=== PATIENT | male | born 1950 | race African-American/Black ===

== ENCOUNTER → 2016-05-24 | Outpatient (CLI) | payer BC, MEDICARE | LOC: RAD 13:15 | PROVIDERS: ATTEND Internal Medicine | DX: Z12.2 Encounter for screening for malignant neoplasm of respiratory organs (principal); F17.210 Nicotine dependence, cigarettes, uncomplicated | CPT/HCPCS: G0297 ==

== ENCOUNTER 2016-08-17 20:31 | Emergency (ER) | payer MEDICARE ==
[2016-08-17] MEDS ORDERED: DIPHENHYDRAMINE HCL 50 MG/ML VIAL IV ONE (23:34)
[2016-08-17] MEDS ORDERED: NORMAL SALINE 1000 ML 500 ML IV ONE (23:34)
[2016-08-17] MEDS ORDERED: METOCLOPRAMIDE HCL INJ/PF 10 MG/2 ML SDV IV ONE (23:34)
--- NOTE | 2016-08-17 23:38 | ER Document Report ---
ED General - General Chief Complaint: Headache <24 hrs old Stated Complaint: HEADACHE Time Seen by Provider: 08/17/16 23:27 Notes: Patient is a 65-year-old male presents with complaint of headache and some dizziness. Patient says he has had a headache for years. He says he always has a headache but it waxes and wanes. She is a neurologist, Dr. Castellon, for his headaches. He says over the last few days he has had some gradual worsening dizziness. He says he feels lightheaded when he stands up. He says when he lays down or sits down he is not dizzy. He saw Dr. Moser yesterday was started on topiramate. He says this is not been helping. No recent fevers infections. No new trauma. Headache is not the worst headache he has ever had. He says only difference is the dizziness that he has today. He does not feel as if he is having spinning sensation. He has no focal weakness or numbness. No other complaints at this time. TRAVEL OUTSIDE OF THE [place] IN LAST 30 DAYS: No - Related Data Allergies/Adverse Reactions: No Known Allergies Allergy (Verified 02/21/13 11:20) Past Medical History - Social History Smoking Status: Unknown if Ever Smoked Frequency of alcohol use: None Drug Abuse: None Family History: Reviewed & Not Pertinent Patient has suicidal ideation: No Patient has homicidal ideation: No - Past Medical History Cardiac Medical History: Reports: Hx Hypercholesterolemia, Hx Hypertension Neurological Medical History: Reports: Hx Migraine Renal/ Medical History: Denies: Hx Peritoneal Dialysis GI Medical History: Reports: Hx Hiatal Hernia - Immunizations Hx Diphtheria, Pertussis, Tetanus Vaccination: Yes Hx Pneumococcal Vaccination: 09/24/11 Review of Systems - Review of Systems Notes: My Normal Review Basic REVIEW OF SYSTEMS: CONSTITUTIONAL : Denies fever, chills, or sweats. Denies recent illness. EENT: Denies eye, ear, throat, or mouth pain or symptoms. Denies nasal or sinus congestion. CARDIOVASCULAR: Denies chest pain. RESPIRATORY: Denies cough, cold, or chest congestion. Denies shortness of breath, difficulty breathing, or wheezing. GASTROINTESTINAL: Denies abdominal pain. Denies nausea, vomiting, or diarrhea. Denies constipation. MUSCULOSKELETAL: Denies neck or back pain or joint pain or swelling. SKIN: Denies rash or skin lesions. NEUROLOGICAL: Denies altered mental status or loss of consciousness. Has a headache. Denies weakness or paralysis or loss of use of either side. Denies problems speech. Denies sensory or motor loss. ALL OTHER SYSTEMS REVIEWED AND NEGATIVE. Physical Exam - Vital signs Vitals: Temp Pulse Resp BP Pulse Ox 98.1 F 66 18 152/80 H 97 08/17/16 21:17 08/17/16 21:17 08/17/16 21:08/17/16 21:17 08/17/16 21:17 - Notes Notes: General Appearance: Well nourished, alert, cooperative, no acute distress, mild obvious discomfort. Vitals: reviewed, See vital signs table. Head: no swelling or tenderness to the head Eyes: PERRL, EOMI, Conjuctiva clear Mouth: No decreasd moisture Neck: Supple, no neck tenderness Lungs: No wheezing, No rales, No rhonci, No accessory muscle use, good air exchange bilaterally. Heart: Normal rate, Regular rythm, No murmur, no rub Abdomen: Normal BS, soft, No rigidity, No abdominal tenderness, No guarding, no rebound, no abdominal masses, no organomegaly Extremities: strength 5/5 in all extremities, good pulses in all extremities, no swelling or tenderness in the extremities, no edema. Skin: warm, dry, appropriate color, no rash Neuro: speech clear, oriented x 3, normal affect, responds appropriately to questions. Nerves II through XII are intact. Distal sensation intact. Patient moves all extremities without difficulty. No focal neurologic deficits on exam. When patient first stands up he does have to balance himself and weights before walking because he says he feels. Patient walks his gait is guarded. He says this is because of him being dizzy. Course - Vital Signs Vital signs: Temp Pulse Resp BP Pulse Ox 98.1 F 66 18 152/80 H 97 08/17/16 21:17 08/17/16 21:17 08/17/16 21:17 08/17/16 21:17 08/17/16 21:17 - Laboratory Result Diagrams: 08/17/16 23:55 08/17/16 23:55 Laboratory results interpreted by me: 08/17/16 08/17/16 23:55 23:55 RDW 14.9 H Sodium 146.0 H Chloride 111 H Glucose 117 H - Transfer of Care Notes: 08/18/16 02:51 After the Benadryl regularly patient's headache is now gone. His dizziness is also gone out that his headache is gone. He looks well. His CT scan is negative. I did obtain a CT scan of head after looking through his previous records and saw visits to his primary care doctor for potential neoplasm. Patient denied history of cancer yet he will also was not the best historian nephroma to make sure there is no malignancy or bleeding malignancy in his head. CT scan was negative. Patient is neurologically intact and feels safe to be discharged home. Is encouraged to return to the ER if he has worsening current headaches, fevers, vomiting, or feels unwell. Patient agrees with plan and will be discharged home. Dictation of this chart was performed using voice recognition software; therefore, there may be some unintended grammatical errors. Discharge - Discharge Clinical Impression: Dizziness Headache Qualifiers: Headache type: unspecified Headache chronicity pattern: acute headache Intractability: not intractable Qualified Code(s): R51 - Headache Condition: Good Disposition: HOME, SELF-CARE Additional Instructions: HEADACHE: The physician does not feel that the headache you are experiencing has a serious underlying cause. Most headaches are due to emotional stress, with resultant muscle tension (tension headache). Occasionally, headaches are secondary to changes in the blood vessels of the scalp (vascular headache and migraine headache). Sometimes, a headache is the first symptom of another developing illness, such as a viral infection. You have no evidence of stroke, bleeding, meningitis, or other serious cause of your headache. The treatment of headaches varies with the severity and cause of the pain. Not all headaches need pain shots. In fact, there is evidence that using narcotics for headaches may make them worse in the long run. The physician will determine the therapy that's in your best interest. If you develop a fever, if the headache is different from any you've previously experienced, or if the headache progressively worsens, then call your physician at once or go to the emergency room. REGLAN (METOCLOPRAMIDE): Reglan has been prescribed. This medicine affects the stomach and intestines. It can be used to treat nausea and vomiting, to prevent reflux of stomach acid up into the esophagus, or to increase the contractions of the stomach and intestines. It is often prescribed for esophagitis, and for paralysis of the stomach in diabetics. Reglan can cause either mild restlessness or drowsiness. You should contact the doctor at once if you become extremely restless, anxious, or cannot sleep, or if you develop uncontrollable motions of the lips, tongue, or jaw. Do not take alcohol with this medicine. Do not drive or operate machinery until you have been taking this medicine long enough to know how it affects you. Call the doctor if you develop abdominal pains, lightheadedness, black stool, or blood in the stool or vomitus. USE OF DIPHENHYDRAMINE: Diphenhydramine (Benadryl) is an antihistamine and has been recommended to help treat your headache and to prevent side effects of other medications used to treat headaches. The medication can be repeated four times daily. Age Elixir (12.5 mg/tsp) 25 mg pill adult 1-2 tabs Antihistamines may cause drowsiness, especially with the first dose. Do not operate machinery or drive while under the effects of the medication. Do not combine the medication with alcohol, or with any other medication without talking to your doctor. FOLLOW-UP CARE: If you have been referred to a physician for follow-up care, call the physician s office for an appointment as you were instructed or within the next two days. If you experience worsening or a significant change in your symptoms, notify the physician immediately or return to the Emergency Department at any time for re-evaluation. Please return to the ER immediately if you have intractable vomiting, fevers, worsening headaches, or feel unwell. Prescriptions: Metoclopramide HCl [Reglan 10 mg Tablet] 1 tab PO ASDIR PRN #25 tablet PRN Reason: Referrals: NORMA MOSER MD [Primary Care Provider] - Follow up in 3-5 days
[2016-08-18 00:06] LABS: ABSOLUTE BASOPHILS # (AUTO) 0.1 10^3/uL (0.0-0.2); ABSOLUTE EOSINOPHILS # (AUTO) 0.1 10^3/uL (0.0-0.6); ABSOLUTE LYMPHOCYTES (AUTO) 3.4 10^3/uL (0.5-4.7); ABSOLUTE MONOCYTES (AUTO) 0.6 10^3/uL (0.1-1.4); ABSOLUTE NEUT (AUTO) 4.9 10^3/uL (1.7-8.2); BASOPHILS % (AUTO) 0.7 % (0-2); EOSINOPHILS % (AUTO) 1.5 % (0-6); HEMATOCRIT 44.9 % (37.9-51.0); HEMOGLOBIN 14.7 g/dL (13.5-17.0); HGB HCT DIFFERENCE -0.8; LYMPHOCYTES % (AUTO) 37.4 % (13-45); MEAN CORPUSCULAR HEMOGLOBIN 29.6 pg (27.0-33.4); MEAN CORPUSCULAR HGB CONC 32.8 g/dL (32.0-36.0); MEAN CORPUSCULAR VOLUME 90 fl (80-97); MONOCYTES % (AUTO) 6.3 % (3-13); RED BLOOD COUNT 4.98 10^6/uL (4.35-5.55); RED CELL DISTRIBUTION WIDTH 14.9 % (11.5-14.0); SEGMENTED NEUTROPHILS % (AUTO) 54.1 % (42-78); WHITE BLOOD COUNT 9.1 10^3/uL (4.0-10.5)
--- NOTE | 2016-08-18 00:07 | RADIOLOGY REPORT (SQ) ---
EXAM DESCRIPTION: CT HEAD WITHOUT COMPLETED DATE/TIME: 08/17/2016 11:45 pm REASON FOR STUDY: headache, dizzy COMPARISON: None. TECHNIQUE: Axial images acquired through the brain without intravenous contrast. Images reviewed wi th bone, brain and subdural windows. Images stored on PACS. All CT scanners at this facility use dose modulation, iterative reconstruction, and/or weight based d osing when appropriate to reduce radiation dose to as low as reasonably achievable (ALARA). [facility]: Dose Right [facility]: CareDose [facility]: Dose Right [facility]: Teradose 4D [facility]: [employer] RADIATION DOSE: 64.61 mGy. LIMITATIONS: None. FINDINGS: VENTRICLES: Normal size and contour. CEREBRUM: No masses. No hemorrhage. No midline shift. Normal akins/white matter differentiation. N o evidence for acute infarction. CEREBELLUM: No masses. No hemorrhage. No alteration of density. No evidence for acute infarction. EXTRAAXIAL SPACES: No fluid collections. No masses. ORBITS AND GLOBE: No intra- or extraconal masses. Normal contour of globe without masses. CALVARIUM: No fracture. PARANASAL SINUSES: Moderate left maxillary mucosal thickening. SOFT TISSUES: No mass or hematoma. OTHER: No other significant finding. IMPRESSION: Chronic left maxillary sinusitis. Otherwise unremarkable CT of the head. TECHNICAL DOCUMENTATION: JOB ID: [id number] Quality ID # [id number]: Final reports with documentation of one or more dose reduction techniques (e.g., Au tomated exposure control, adjustment of the mA and/or kV according to patient size, use of iterative reconstruction technique) 2010 [employer]- All Rights Reserved
[2016-08-18 00:22] LABS: ANION GAP 13 (5-19); BLOOD UREA NITROGEN 10 mg/dL (7-20); CALCIUM 10.1 mg/dL (8.4-10.2); CARBON DIOXIDE 22 mmol/L (22-30); CHLORIDE 111 mmol/L (98-107); CREATININE RESULT 0.74 mg/dL (0.52-1.25); GLUCOSE 117 mg/dL (75-110); POTASSIUM 3.9 mmol/L (3.6-5.0)
[2016-08-18 03:08] VITALS: BP 144/79
== END 2016-08-18 02:55 | disposition home or self-care (01) ==
LOC: ER 20:31
DX: R51 Headache (principal); R42 Dizziness and giddiness; I10 Essential (primary) hypertension; Z86.69 Personal history of other diseases of the nervous system and sense organs
CPT/HCPCS: 99284; 96374; 96375; 36415; 85025; 80048; 70450; J1200; J2765; J7030

== ENCOUNTER → 2017-06-01 | Outpatient (CLI) | payer MEDICARE ==
--- NOTE | 2017-06-01 17:06 | RADIOLOGY REPORT (SQ) ---
EXAM DESCRIPTION: CT LUNG CANCER SCREENING COMPLETED DATE/TIME: 06/01/2017 4:32 pm REASON FOR STUDY: F17.218 NICOTINE DEPENDENCE, CIGARETTES, W OTH DISORDERS F17.218 NICOTINE DEPENDE NCE, CIGARETTES, W OTH DISORDERS Has the patient had a Chest CT scan within the past year? Was the patient offered tobacco cessation counseling? Was the patient engaged in shared decision making for this test? Does the patient have signs or symptoms of Lung Cancer? Is the patient a smoker? How many packs per year? How many years since quitting smoking? Patients age: COMPARISON: 05/24/2016. TECHNIQUE: Low Dose CT scan performed of the chest without intravenous contrast for purposes of scre ening for lung cancer. Images reviewed with lung, soft tissue and bone windows. Reconstructed coron al and sagittal MPR images reviewed. All images stored on PACS. All CT scanners at this facility use dose modulation, iterative reconstruction, and/or weight based d osing when appropriate to reduce radiation dose to as low as reasonably achievable (ALARA). [facility]: Dose Right [facility]: CareDose [facility]: Dose Right [facility]: Teradose 4D [facility]: [employer] RADIATION DOSE: CT Rad equipment meets quality standard of care and radiation dose reduction techniq ues were employed. CTDIvol: 2.1 mGy. DLP: 95 mGy-cm. mGy. . LIMITATIONS: None FINDINGS: LUNGS AND PLEURA: No masses or nodules. Small calcified granulomas in the left base. N o pleural effusions or calcifications. No pneumothorax. Stable mild scattered scarring. HILAR AND MEDIASTINAL STRUCTURES: No identified masses. No abnormal nodes. HEART AND VASCULAR STRUCTURES: No aortic aneurysm. No pericardial effusion. No cardiac devices. CORONARY ARTERY CALCIFICATIONS: No significant calcifications. UPPER ABDOMEN, THYROID, BONES, OTHER SOFT TISSUES: No significant findings. IMPRESSION: NO SIGNIFICANT FINDING IN THE LUNGS ON NON-CONTRASTED CHEST CT. NO OTHER CLINICALLY SIGNIFICANT/POTENTIALLY CLINICALLY SIGNIFICANT FINDINGS LUNGRADS: LUNGRADS: 1 NEGATIVE. NO NODULES, OR DEFINITELY BENIGN NODULES MODIFIER: NONE RECOMMENDATION: Continue annual screening with LDCT in 12 months. COMMENT: CRITERIA: No lung nodules. Nodules with specific calcifications: Complete, central, popcorn, concentric rings and fat containin g nodules. TECHNICAL DOCUMENTATION: JOB ID: [id number] Quality ID # [id number]: Final reports with documentation of one or more dose reduction techniques (e.g., Au tomated exposure control, adjustment of the mA and/or kV according to patient size, use of iterative reconstruction technique) 2010 [facility] Radiology Reading location - IP/workstation name: [email or web address]
== END ==
LOC: RAD 16:30
PROVIDERS: ATTEND Internal Medicine
DX: F17.218 Nicotine dependence, cigarettes, with other nicotine-induced disorders (principal)
CPT/HCPCS: G0297

== ENCOUNTER → 2017-06-13 | Outpatient (CLI) | payer MEDICARE ==
--- NOTE | 2017-06-14 09:00 | RADIOLOGY REPORT (SQ) ---
EXAM DESCRIPTION: MRI HEAD WITHOUT COMPLETED DATE/TIME: 06/13/2017 5:23 pm REASON FOR STUDY: MIGRAINES G43.001 MIGRAINE W/O AURA, NOT INTRACTABLE, WITH STATUS MIGR COMPARISON: MRI cervical spine 10/21/2011 MRI brain 08/17/2016 TECHNIQUE: Multiplanar imaging includes non-contrasted T1, T2, FLAIR, and diffusion with ADC map seq uences. Images stored on PACS. LIMITATIONS: None. FINDINGS: ANATOMY: No anomalies. Normal vascular flow voids. Pituitary fossa normal. CSF SPACES: Normal in size and contour. No hemorrhage. CEREBRUM: Sulci and gyri normal in size and contour. Normal white matter signal on FLAIR imaging. No evidence of hemorrhage, mass, or extraaxial fluid collection. POSTERIOR FOSSA: No signal alteration. No hemorrhage. No edema, masses or mass effect. Internal char tory canals, cerebello-pontine angles, mastoids normal. DIFFUSION IMAGING: Negative for acute or sub-acute infarction. ORBITS: No masses. Globes normal. PARANASAL SINUSES: No fluid levels. Mucosa normal. OTHER: No other significant finding. IMPRESSION: NORMAL MRI OF THE BRAIN WITHOUT INTRAVENOUS GADOLINIUM CONTRAST. EVIDENCE OF ACUTE STROKE: No TECHNICAL DOCUMENTATION: JOB ID: [id number] [employer]- All Rights Reserved Reading location - IP/workstation name: [facility]
== END ==
LOC: RAD 16:08
PROVIDERS: ATTEND Specialist
DX: G43.001 Migraine without aura, not intractable, with status migrainosus (principal)
CPT/HCPCS: 70551

== ENCOUNTER 2017-07-30 12:06 | Emergency (ER) | payer OTHER, MEDICARE ==
[2017-07-30] MEDS ORDERED: MECLIZINE HCL 25 MG TABLET PO ONE (13:44)
--- NOTE | 2017-07-30 13:45 | ER Document Report ---
ED Dizziness/Weakness - General Chief Complaint: Dizziness Stated Complaint: DIZZINESS Time Seen by Provider: 07/30/17 12:40 Notes: Patient is a 66-year-old male with a history of complex migraines with associated dizziness who presents emergency department complaining of headache and dizziness. Patient states that he has had issues with headaches for over 10 years has been following with Dr. Castellon for the past 6. Patient states that he has been initiated on gabapentin recently for this. He states that ever since he has been taking the gabapentin, his dizziness is been a little worse. He states today that when he moves his head certain ways that he feels that he is spinning. He states that when he is stationary that he feels fine. He also admits to pain in the back of his neck radiating into the back of his head. He states that this is an intermittent problem on and off. He denies any pain with range of motion. He denies any associated nausea weakness, lightheadedness when ambulating. Patient denies any recent fevers, trauma. Patient states the headache is not any worse than his baseline. He denies any focal weakness, numbness. No other complaints at this time. Has a history of hypertension, hyperlipidemia. TRAVEL OUTSIDE OF THE [place] IN LAST 30 DAYS: No - Related Data Allergies/Adverse Reactions: No Known Allergies Allergy (Verified 02/21/13 11:20) Past Medical History - Social History Smoking Status: Current Every Day Smoker Frequency of alcohol use: None Family History: Reviewed & Not Pertinent Patient has suicidal ideation: No Patient has homicidal ideation: No - Past Medical History Cardiac Medical History: Reports: Hx Hypercholesterolemia, Hx Hypertension Neurological Medical History: Reports: Hx Migraine Renal/ Medical History: Denies: Hx Peritoneal Dialysis GI Medical History: Reports: Hx Hiatal Hernia - Immunizations Hx Diphtheria, Pertussis, Tetanus Vaccination: Yes Hx Pneumococcal Vaccination: 09/24/11 Review of Systems - Review of Systems Constitutional: No symptoms reported Cardiovascular: No symptoms reported Respiratory: No symptoms reported Gastrointestinal: No symptoms reported Musculoskeletal: See HPI Physical Exam - Vital signs Vitals: Temp Pulse Resp BP Pulse Ox 97.8 F 80 20 152/79 H 99 07/30/17 12:16 07/30/17 12:16 07/30/17 12:16 07/30/17 12:16 07/30/17 12:16 - Notes Notes: PHYSICAL EXAM GENERAL: Alert, interacts well. HEAD: Normocephalic, atraumatic. EYES: Pupils equal, round, and reactive to light. Extraocular movements intact. ENT: Oral mucosa moist, tongue midline. NECK: Full range of motion. Supple. Trachea midline. Tenderness along neck muscle. LUNGS: Clear to auscultation bilaterally, no wheezes, rales, or rhonchi. No respiratory distress. HEART: Regular rate and rhythm. No murmurs, gallops, or rubs. ABDOMEN: Soft, nondistended, nontender. No guarding, rebound, or rigidity.. Bowel sounds present in all 4 quadrants. EXTREMITIES: Moves all 4 extremities spontaneously. No edema, radial and dorsalis pedis pulses 2/4 bilaterally. No cyanosis. NEUROLOGICAL: Alert and oriented x4. Face symmetric. Tongue protrudes midline. Extraocular motions intact. Pupils are 2 mm and equally reactive. Normal speech, normal gait. 5 out of 5 strength in both the distal and proximal upper and lower extremities bilaterally. Sensation is grossly intact throughout. Finger to nose testing normal. Pronator drift normal. PSYCH: Normal affect, normal mood. SKIN: Warm, dry, normal turgor. No rashes or lesions noted. Course - Re-evaluation Re-evalutation: Patient is a 66-year-old male who is hemodynamically stable, no acute distress and afebrile. Presentation consistent with his history of migraines. Patient states that he has had resolution of his dizziness after Antivert, Benadryl and Tylenol. Patient states that he still has some tension in his neck but improved with heat packs. Patient does not have any focal neurologic deficits, nuchal rigidity, vital signs are within normal limits no papilledema. Patient is otherwise no acute distress and hemodynamically stable. Low index for suspicion of acute subarachnoid hemorrhage, meningitis or mass. Low suspicion for acute life-threatening etiology with intact neuro exam therefore no additional imaging or laboratory testing is indicated. Will discharge patient home with strict follow-up with PCP - Vital Signs Vital signs: Temp Pulse Resp BP Pulse Ox 97.8 F 80 21 H 145/86 H 98 07/30/17 12:16 07/30/17 12:16 07/30/17 17:12 07/30/17 17:12 07/30/17 17:12 Discharge - Discharge Clinical Impression: Headache Condition: Good Disposition: HOME, SELF-CARE Instructions: Use of Nbtv-Ebu-Dmfvkod Ibuprofen ([facility]), Warm Packs ([facility]) Additional Instructions: [facility] * Address: [address], [place] [address] * [facility] * Address: [address] [facility], [place] [address] * [facility] * Address: [address] [place] [address] * HEADACHE: The physician does not feel that the headache you are experiencing has a serious underlying cause. Most headaches are due to emotional stress, with resultant muscle tension (tension headache). Occasionally, headaches are secondary to changes in the blood vessels of the scalp (vascular headache and migraine headache). Sometimes, a headache is the first symptom of another developing illness, such as a viral infection. You have no evidence of stroke, bleeding, meningitis, or other serious cause of your headache. The treatment of headaches varies with the severity and cause of the pain. Not all headaches need pain shots. In fact, there is evidence that using narcotics for headaches may make them worse in the long run. The physician will determine the therapy that's in your best interest. If you develop a fever, if the headache is different from any you've previously experienced, or if the headache progressively worsens, then call your physician at once or go to the emergency room. USE OF DIPHENHYDRAMINE: Diphenhydramine (Benadryl) is an antihistamine and has been recommended to help treat your headache and to prevent side effects of other medications used to treat headaches. The medication can be repeated four times daily. Age Elixir (12.5 mg/tsp) 25 mg pill adult 1-2 tabs Antihistamines may cause drowsiness, especially with the first dose. Do not operate machinery or drive while under the effects of the medication. Do not combine the medication with alcohol, or with any other medication without talking to your doctor. FOLLOW-UP CARE: If you have been referred to a physician for follow-up care, call the physician s office for an appointment as you were instructed or within the next two days. If you experience worsening or a significant change in your symptoms, notify the physician immediately or return to the Emergency Department at any time for re-evaluation. Referrals: NORMA MOSER MD [Primary Care Provider] - Follow up in 1 week
[2017-07-30] MEDS ORDERED: ACETAMINOPHEN 325 MG TABLET PO ONE (15:25)
[2017-07-30] MEDS ORDERED: DIPHENHYDRAMINE HCL 50 MG CAPSULE PO ONE (15:25)
[2017-07-30 17:14] VITALS: BP 145/86
[2017-07-31] MEDS ORDERED: LACTATED RINGERS 1000 ML IV PRN (05:00)
--- NOTE | 2017-07-31 12:33 | EKG REPORT ---
SEVERITY:- NORMAL ECG - SINUS RHYTHM : Confirmed by: Dez Quiles MD 31-Jul-2017 12:32:27
== END 2017-07-30 17:16 | disposition home or self-care (01) ==
LOC: ER 12:06
DX: G43.909 Migraine, unspecified, not intractable, without status migrainosus (principal); R42 Dizziness and giddiness; F17.200 Nicotine dependence, unspecified, uncomplicated; I10 Essential (primary) hypertension
CPT/HCPCS: 93005; 93010; 99284

== ENCOUNTER 2018-02-02 22:25 | Emergency (ER) | payer OTHER, MEDICARE ==
--- NOTE | 2018-02-02 23:54 | ER Document Report ---
ED General - General Chief Complaint: Abdominal Pain Stated Complaint: STOMACH ACHE/ITCHY Time Seen by Provider: 02/02/18 23:26 Notes: Patient is a 67-year-old -Welsh male who presents with complaint of a mild stomachache and also some itching. Says started after he started taking topiramate for his chronic migraine headaches. He has a history of chronic migraines. He says he always gets a headache. Currently has a mild headache this is nothing worse than his usual. He is actually scheduled to go see a neurologist this month to have Botox injections try to help with his headache. Headache is not sudden in onset. It chronic and gradual in onset recurring. Says the abdominal pain is mild. No associated vomiting. Some nausea. No diarrhea. No fevers. He says he used to drink alcohol regular basis but quit 10 years ago. No history of liver issues. No history of jaundice. TRAVEL OUTSIDE OF THE [place] IN LAST 30 DAYS: No - Related Data Allergies/Adverse Reactions: No Known Allergies Allergy (Verified 02/02/18 22:38) Past Medical History - Social History Smoking Status: Former Smoker Frequency of alcohol use: None Drug Abuse: None Family History: Reviewed & Not Pertinent - Past Medical History Cardiac Medical History: Reports: Hx Hypercholesterolemia, Hx Hypertension Neurological Medical History: Reports: Hx Migraine Renal/ Medical History: Denies: Hx Peritoneal Dialysis GI Medical History: Reports: Hx Hiatal Hernia - Immunizations Hx Diphtheria, Pertussis, Tetanus Vaccination: Yes Hx Pneumococcal Vaccination: 09/24/11 Review of Systems - Review of Systems Notes: My Normal Review Basic REVIEW OF SYSTEMS: CONSTITUTIONAL : Denies fever, chills, or sweats. Denies recent illness. CARDIOVASCULAR: Denies chest pain. RESPIRATORY: Denies cough, cold, or chest congestion. Denies shortness of breath, difficulty breathing, or wheezing. GASTROINTESTINAL: ALT central abdominal pain. Some nausea. No vomiting. MUSCULOSKELETAL: Denies neck or back pain or joint pain or swelling. SKIN: Denies rash or skin lesions. NEUROLOGICAL: Denies altered mental status or loss of consciousness. Chronic headache. Denies weakness or paralysis or loss of use of either side. Denies problems with gait or speech. Denies sensory or motor loss. ALL OTHER SYSTEMS REVIEWED AND NEGATIVE. Physical Exam - Vital signs Vitals: Temp Pulse Resp BP Pulse Ox 97.8 F 67 16 127/67 H 99 02/02/18 23:57 02/02/18 23:57 02/02/18 23:57 02/02/18 23:57 02/02/18 23:57 - Notes Notes: General Appearance: Well nourished, alert, cooperative, no acute distress, no obvious discomfort. Vitals: reviewed, See vital signs table. Head: no swelling or tenderness to the head Eyes: PERRL, EOMI, Conjuctiva clear Lungs: No wheezing, No rales, No rhonci, No accessory muscle use, good air exchange bilaterally. Heart: Normal rate, Regular rythm, No murmur, no rub Abdomen: Normal BS, soft, No rigidity, No reproducible abdominal tenderness to palpation, No guarding, no rebound, no abdominal masses, no organomegaly Extremities: strength 5/5 in all extremities, good pulses in all extremities, no swelling or tenderness in the extremities, no edema. Skin: warm, dry, appropriate color, no rash Neuro: speech clear, oriented x 3, normal affect, responds appropriately to questions. Renal nerves II through XII are intact. Patient moves all extremities without difficulty. Course - Re-evaluation Re-evalutation: 02/03/18 00:51 Patient looks very well on exam. Is not a lot of pain. All his symptoms started when he started taking the topiramate. We will have him stop taking topiramate. She had some itching social abdominal pain I did check his liver enzymes and bilirubin to make sure there is no evidence of hyperbilirubinemia. His liver enzymes are not elevated. His bilirubin is normal. Patient looks very well and I feel safe to be discharged home. I strongly encouraged him return to ER if he has worsening of his symptoms, fevers, vomiting, or feels unwell. I have prescribed Reglan for the patient to take in place of the topiramate to hopefully help with his headaches. I encouraged him follow-up with his doctor on Sunday. Patient agrees with plan. Dictation of this chart was performed using voice recognition software; therefore, there may be some unintended grammatical errors. - Vital Signs Vital signs: Temp Pulse Resp BP Pulse Ox 97.8 F 67 16 127/67 H 99 02/02/18 23:57 02/02/18 23:57 02/02/18 23:57 02/02/18 23:57 02/02/18 23:57 - Laboratory Result Diagrams: 02/02/18 23:59 02/02/18 23:59 Laboratory results interpreted by me: 02/02/18 02/02/18 23:59 23:59 RDW 14.5 H Lymphocytes % 47.6 H Sodium 146.9 H Chloride 114 H Carbon Dioxide 20 L AST 16 L ALT 17 L Discharge - Discharge Clinical Impression: Abdominal pain Qualifiers: Abdominal location: generalized Qualified Code(s): R10.84 - Generalized abdominal pain Condition: Good Disposition: HOME, SELF-CARE Additional Instructions: Please stop taking the Topiramate as this may be causing your symptoms. I have prescribed a medication called Reglan that you can take instead to help with your headaches. Please return to the ER if you have worsening itching, worsening pain, vomiting, fevers, or feel unwell. Please follow up with your doctor on Sunday fro reevaluation. Prescriptions: Metoclopramide HCl [Reglan 10 mg Tablet] 1 tab PO ASDIR PRN #25 tablet PRN Reason: Referrals: NORMA MOSER MD [Primary Care Provider] - 02/04/18
[2018-02-03 00:15] LABS: ABSOLUTE BASOPHILS # (AUTO) 0.1 10^3/uL (0.0-0.2); ABSOLUTE EOSINOPHILS # (AUTO) 0.1 10^3/uL (0.0-0.6); ABSOLUTE LYMPHOCYTES (AUTO) 4.3 10^3/uL (0.5-4.7); ABSOLUTE MONOCYTES (AUTO) 0.6 10^3/uL (0.1-1.4); BASOPHILS % (AUTO) 0.6 % (0-2); EOSINOPHILS % (AUTO) 1.1 % (0-6); HEMATOCRIT 41.4 % (37.9-51.0); HEMOGLOBIN 13.8 g/dL (13.5-17.0); LYMPHOCYTES % (AUTO) 47.6 % (13-45); MEAN CORPUSCULAR HEMOGLOBIN 29.8 pg (27.0-33.4); MEAN CORPUSCULAR HGB CONC 33.4 g/dL (32.0-36.0); MEAN CORPUSCULAR VOLUME 89 fl (80-97); MONOCYTES % (AUTO) 6.9 % (3-13); PLATELET COUNT 171 10^3/uL (150-450); RED BLOOD COUNT 4.63 10^6/uL (4.35-5.55); RED CELL DISTRIBUTION WIDTH 14.5 % (11.5-14.0); SEGMENTED NEUTROPHILS % (AUTO) 43.8 % (42-78); TOTAL CELLS COUNTED % (AUTO) 100 %; WHITE BLOOD COUNT 9.1 10^3/uL (4.0-10.5)
[2018-02-03 00:35] LABS: ALANINE AMINOTRANSFERASE 17 U/L (21-72); ALBUMIN 4.4 g/dL (3.5-5.0); ALKALINE PHOSPHATASE 67 U/L (38-126); ANION GAP 13 (5-19); ASPARTATE AMINO TRANSFERASE 16 U/L (17-59); BILIRUBIN,DIRECT 0.3 mg/dL (0.0-0.4); BILIRUBIN,TOTAL 0.3 mg/dL (0.2-1.3); BLOOD UREA NITROGEN 14 mg/dL (7-20); CALCIUM 9.9 mg/dL (8.4-10.2); CARBON DIOXIDE 20 mmol/L (22-30); CHLORIDE 114 mmol/L (98-107); GLUCOSE 101 mg/dL (75-110); POTASSIUM 4.2 mmol/L (3.6-5.0); SODIUM 146.9 mmol/L (137-145); TOTAL PROTEIN 6.8 g/dL (6.3-8.2)
[2018-02-03 01:18] VITALS: BP 116/58
== END 2018-02-03 01:20 | disposition home or self-care (01) ==
LOC: ER 22:25
DX: R10.84 Generalized abdominal pain (principal); E78.00 Pure hypercholesterolemia, unspecified; I10 Essential (primary) hypertension
CPT/HCPCS: 36415; 80053; 85025; 99284

== ENCOUNTER → 2018-03-07 | Outpatient (CLI) | payer MEDICARE ==
--- NOTE | 2018-03-07 16:06 | RADIOLOGY REPORT (SQ) ---
EXAM DESCRIPTION: CT ABD/PELVIS WITH IV ORAL COMPLETED DATE/TIME: 03/07/2018 3:47 pm REASON FOR STUDY: GENERALIZED ABDOMINAL PAIN R10.84 GENERALIZED ABDOMINAL PAIN COMPARISON: None. TECHNIQUE: CT scan of the abdomen and pelvis performed with intravenous and oral contrast using ha juan maunel scanning technique with dynamic intravenous contrast injection. Images reviewed with lung, soft t issue, and bone windows. Reconstructed coronal and sagittal MPR images reviewed. Delayed images for e valuation of the urinary system also acquired. All images stored on PACS. All CT scanners at this facility use dose modulation, iterative reconstruction, and/or weight based d osing when appropriate to reduce radiation dose to as low as reasonably achievable (ALARA). [facility]: Dose Right [facility]: CareDose [facility]: Dose Right [facility]: Teradose 4D [facility]: [employer] CONTRAST TYPE AND DOSE: contrast/concentration: Isovue 350.00 mg/ml; Total Contrast Delivered: 80.0 ml; Total Saline Delivered: 68.0 ml RENAL FUNCTION: Creatinine 0.8 RADIATION DOSE: CT Rad equipment meets quality standard of care and radiation dose reduction techniq ues were employed. CTDIvol: 4.4 - 5.2 mGy. DLP: 456 mGy-cm. . LIMITATIONS: None. FINDINGS: LOWER CHEST: Nothing acute. LIVER: Normal size. No masses. No dilated ducts. SPLEEN: Normal size. No focal lesions. PANCREAS: No masses. No significant calcifications. No adjacent inflammation or peripancreatic fluid collections. Pancreatic duct not dilated. GALLBLADDER: No identified stones by CT criteria. No inflammatory changes to suggest cholecystitis. ADRENAL GLANDS: No significant masses or asymmetry. RIGHT KIDNEY AND URETER: No solid masses. No significant calcifications. No hydronephrosis or hyd roureter. LEFT KIDNEY AND URETER: No solid masses. No significant calcifications. No hydronephrosis or hydr oureter. AORTA AND VESSELS: No aneurysm. No dissection. Renal arteries, SMA, celiac without stenosis. RETROPERITONEUM: No retroperitoneal adenopathy, hemorrhage or masses. BOWEL AND PERITONEAL CAVITY: No obstruction. No visualized masses. No free fluid. No inflammatory ch anges or thickening of bowel wall. APPENDIX: Normal. PELVIS: Prostatic impression on the urinary bladder. No pelvic adenopathy. ABDOMINAL WALL: No masses. No hernias. BONES: Nothing acute. OTHER: No other significant finding. IMPRESSION: NO ACUTE FINDINGS IN THE ABDOMEN OR PELVIS. TECHNICAL DOCUMENTATION: JOB ID: [id number] Quality ID # [id number]: Final reports with documentation of one or more dose reduction techniques (e.g., Au tomated exposure control, adjustment of the mA and/or kV according to patient size, use of iterative reconstruction technique) 2010 [employer]- All Rights Reserved Reading location - IP/workstation name: [facility]
== END ==
LOC: RAD 12:51
PROVIDERS: ATTEND Internal Medicine
DX: R10.84 Generalized abdominal pain (principal)
CPT/HCPCS: 74177; 82565

== ENCOUNTER 2018-03-20 16:24 | Emergency (ER) | payer MEDICARE, OTHER ==
[2018-03-20] MEDS ORDERED: PROCHLORPERAZINE EDISYLATE INJ 10 MG/2 ML VIAL IM ONE (18:29)
[2018-03-20] MEDS ORDERED: DIPHENHYDRAMINE HCL 50 MG/ML VIAL IM ONE (18:29)
--- NOTE | 2018-03-20 18:32 | ER Document Report ---
ED Medical Screen (RME) - General Chief Complaint: Headache >24 hrs old Stated Complaint: HEADACHE Time Seen by Provider: 03/20/18 18:24 Notes: 67-year-old male with a history of chronic headaches who takes Botox for his migraines presents the emergency department complaining of a headache that is worse than prior headaches and in a different distribution associated with lightheadedness and blurry vision. Is usually global and tonight it is temporal and radiating from the back of his neck, it is worse than other headaches he has ever had, it is associated with lightheadedness and blurry vision. Patient has never had lightheadedness with his headaches before, patient also states that he has had blurry vision before but is never been this blurry. Patient was worried that he might pass out earlier today. Denies chest pain but admits some mild shortness of breath. TRAVEL OUTSIDE OF THE [place] IN LAST 30 DAYS: No - Related Data Allergies/Adverse Reactions: No Known Allergies Allergy (Verified 03/20/18 18:06) Past Medical History - General Information source: Patient - Social History Chew tobacco use (# tins/day): No Frequency of alcohol use: None Drug Abuse: None - Past Medical History Cardiac Medical History: Reports: Hx Hypercholesterolemia, Hx Hypertension Neurological Medical History: Reports: Hx Migraine Renal/ Medical History: Denies: Hx Peritoneal Dialysis GI Medical History: Reports: Hx Hiatal Hernia - Immunizations Hx Diphtheria, Pertussis, Tetanus Vaccination: Yes Review of Systems - Review of Systems Constitutional: See HPI EENT: See HPI Cardiovascular: See HPI Respiratory: See HPI Hematologic/Lymphatic: See HPI Physical Exam - Vital signs Vitals: Temp Pulse Resp BP Pulse Ox 97.8 F 73 18 124/63 97 03/20/18 16:49 03/20/18 16:49 03/20/18 16:49 03/20/18 16:49 03/20/18 16:49 Interpretation: Normal - General General appearance: Appears well, Alert - HEENT Head: Normocephalic, Atraumatic Eyes: Normal Extraocular movements intact: Yes Pupils: PERRL Notes: No lesions on the scalp, temples are nontender to palpation, no facial droop - Neurological Neuro grossly intact: Yes Cognition: Normal Orientation: AAOx4 Manoj Coma Scale Eye Opening: Spontaneous [place] Coma Scale Verbal: Oriented Manoj Coma Scale Motor: Obeys Commands [place] Coma Scale Total: 15 Speech: Normal Motor strength normal: LUE, RUE, LLE, RLE Course - Vital Signs Vital signs: Temp Pulse Resp BP Pulse Ox 97.8 F 73 18 124/63 97 03/20/18 16:49 03/20/18 16:49 03/20/18 16:49 03/20/18 16:49 03/20/18 16:49 Doctor's Discharge - Discharge Referrals: NORMA MOSER MD [Primary Care Provider] - Follow up as needed
--- NOTE | 2018-03-20 19:07 | EKG REPORT ---
SEVERITY:- OTHERWISE NORMAL ECG - SINUS RHYTHM ATRIAL PREMATURE COMPLEX LEFT AXIS DEVIATION : Confirmed by: Robert Quintero 20-Mar-2018 19:07:04
--- NOTE | 2018-03-20 19:14 | RADIOLOGY REPORT (SQ) ---
EXAM DESCRIPTION: CHEST 2 VIEWS COMPLETED DATE/TIME: 03/20/2018 6:44 pm REASON FOR STUDY: shortness of breath and lightheadedness COMPARISON: 10/06/2012 EXAM PARAMETERS: NUMBER OF VIEWS: two views TECHNIQUE: Digital Frontal and Lateral radiographic views of the chest acquired. RADIATION DOSE: NA LIMITATIONS: none FINDINGS: LUNGS AND PLEURA: No opacities, masses or pneumothorax. No pleural effusion. MEDIASTINUM AND HILAR STRUCTURES: No masses or contour abnormalities. HEART AND VASCULAR STRUCTURES: Heart normal size. No evidence for failure. BONES: No acute findings. HARDWARE: None in the chest. OTHER: No other significant finding. IMPRESSION: NO ACUTE RADIOGRAPHIC FINDING IN THE CHEST. TECHNICAL DOCUMENTATION: JOB ID: [id number] [email or web address]- All Rights Reserved Reading location - IP/workstation name: [email or web address]
--- NOTE | 2018-03-20 19:20 | RADIOLOGY REPORT (SQ) ---
EXAM DESCRIPTION: CT HEAD WITHOUT COMPLETED DATE/TIME: 03/20/2018 6:56 pm REASON FOR STUDY: worsening headache with blurry vision COMPARISON: MR 06/13/2017 CT 08/17/2016 TECHNIQUE: Axial images acquired through the brain without intravenous contrast. Images reviewed wi th bone, brain and subdural windows. Additional sagittal and coronal reconstructions were generated. Images stored on PACS. All CT scanners at this facility use dose modulation, iterative reconstruction, and/or weight based d osing when appropriate to reduce radiation dose to as low as reasonably achievable (ALARA). [facility]: Dose Right [facility]: CareDose [facility]: Dose Right [facility]: Teradose 4D [facility]: [employer] RADIATION DOSE: CT Rad equipment meets quality standard of care and radiation dose reduction techniq ues were employed. CTDIvol: 53.2 mGy. DLP: 964 mGy-cm. mGy. LIMITATIONS: None. FINDINGS: VENTRICLES: Normal size and contour. CEREBRUM: No masses. No hemorrhage. No midline shift. No evidence for acute infarction. Normal gra y/white matter differentiation. No areas of low density in the white matter. CEREBELLUM: No masses. No hemorrhage. No alteration of density. No evidence for acute infarction. EXTRAAXIAL SPACES: No fluid collections. No masses. ORBITS AND GLOBE: No intra- or extraconal masses. Normal contour of globe without masses. CALVARIUM: No fracture. PARANASAL SINUSES: No fluid or mucosal thickening. SOFT TISSUES: No mass or hematoma. OTHER: No other significant finding. IMPRESSION: NORMAL BRAIN CT WITHOUT CONTRAST. EVIDENCE OF ACUTE STROKE: NO. COMMENT: Quality ID # [id number]: Final reports with documentation of one or more dose reduction techniques (e.g., Automated exposure control, adjustment of the mA and/or kV according to patient size, use of iterative reconstruction technique) TECHNICAL DOCUMENTATION: JOB ID: [id number] [employer]- All Rights Reserved Reading location - IP/workstation name: [email or web address]
[2018-03-20 19:27] LABS: ABSOLUTE EOSINOPHILS # (AUTO) 0.1 10^3/uL (0.0-0.6); ABSOLUTE LYMPHOCYTES (AUTO) 3.5 10^3/uL (0.5-4.7); ABSOLUTE MONOCYTES (AUTO) 0.6 10^3/uL (0.1-1.4); ABSOLUTE NEUT (AUTO) 6.2 10^3/uL (1.7-8.2); BASOPHILS % (AUTO) 0.4 % (0-2); EOSINOPHILS % (AUTO) 0.6 % (0-6); HEMATOCRIT 46.3 % (37.9-51.0); HEMOGLOBIN 15.5 g/dL (13.5-17.0); LYMPHOCYTES % (AUTO) 33.4 % (13-45); MEAN CORPUSCULAR HEMOGLOBIN 30.1 pg (27.0-33.4); MEAN CORPUSCULAR HGB CONC 33.4 g/dL (32.0-36.0); MEAN CORPUSCULAR VOLUME 90 fl (80-97); MONOCYTES % (AUTO) 6.1 % (3-13); PLATELET COUNT 199 10^3/uL (150-450); RED BLOOD COUNT 5.14 10^6/uL (4.35-5.55); RED CELL DISTRIBUTION WIDTH 14.3 % (11.5-14.0); SEGMENTED NEUTROPHILS % (AUTO) 59.5 % (42-78); TOTAL CELLS COUNTED % (AUTO) 100 %; WHITE BLOOD COUNT 10.5 10^3/uL (4.0-10.5)
[2018-03-20 19:46] LABS: ALANINE AMINOTRANSFERASE 19 U/L (21-72); ALBUMIN 5.3 g/dL (3.5-5.0); ALKALINE PHOSPHATASE 62 U/L (38-126); ANION GAP 11 (5-19); ASPARTATE AMINO TRANSFERASE 18 U/L (17-59); BILIRUBIN,DIRECT 0.3 mg/dL (0.0-0.4); BILIRUBIN,TOTAL 0.5 mg/dL (0.2-1.3); BLOOD UREA NITROGEN 10 mg/dL (7-20); CALCIUM 10.4 mg/dL (8.4-10.2); CARBON DIOXIDE 28 mmol/L (22-30); CHLORIDE 107 mmol/L (98-107); CREATINE KINASE 122 U/L (55-170); GLUCOSE 93 mg/dL (75-110); POTASSIUM 4.4 mmol/L (3.6-5.0); TOTAL PROTEIN 8.3 g/dL (6.3-8.2)
[2018-03-20 19:56] LABS: CREATINE KINASE MB 0.61 ng/mL (<4.55); TROPONIN I < 0.012 ng/mL
[2018-03-20] MEDS ORDERED: ACETAMINOPHEN 325 MG TABLET PO ONE (21:03)
[2018-03-20] MEDS ORDERED: DEXAMETHASONE 4 MG TABLET PO ONE (21:03)
[2018-03-20] MEDS ORDERED: IBUPROFEN 600 MG TABLET PO ONE (21:03)
[2018-03-20] MEDS ORDERED: MECLIZINE HCL 25 MG TABLET PO ONE (21:03)
--- NOTE | 2018-03-20 22:00 | ER Document Report ---
ED General - General Chief Complaint: Headache >24 hrs old Stated Complaint: HEADACHE Time Seen by Provider: 03/20/18 18:24 Mode of Arrival: Ambulatory Information source: Patient, Relative, [facility] Records Notes: 67-year-old male with hypertension, hyperlipidemia, chronic migraine headaches who undergoes Botox injections frequently presents with complaint of headache that started 10 days prior to arrival with worsening of pain today. Pain is located in the parietal area bilaterally and throbbing pain. Patient states that this is typical of his migraines. He is not on any maintenance medications for his migraines. He is due for another round of Botox injections in approximately 3 weeks. He has not contacted his neurologist regarding this new headache. Patient has associated nausea, photophobia. He denies any slurred speech, confusion, difficulty with ambulation, focal weakness. Patient is not on any blood thinning medication. He reports a recent MRI within the last 3 months which he reports to be normal. TRAVEL OUTSIDE OF THE [place] IN LAST 30 DAYS: No - HPI Onset: Other Onset/Duration: Gradual, Persistent, Worse Quality of pain: Throbbing Severity: Moderate Associated symptoms: Headache, Nausea. denies: Body/muscle aches, Chest pain, Diarrhea, Fever, Vomiting, Weakness Exacerbated by: Denies Relieved by: Denies Similar symptoms previously: Yes Recently seen / treated by doctor: Yes - Related Data Allergies/Adverse Reactions: No Known Allergies Allergy (Verified 03/20/18 18:06) Past Medical History - General Information source: Patient - Social History Smoking Status: Current Every Day Smoker Chew tobacco use (# tins/day): No Frequency of alcohol use: None Drug Abuse: None Lives with: Spouse/Significant other Family History: Reviewed & Not Pertinent Patient has suicidal ideation: No Patient has homicidal ideation: No - Past Medical History Cardiac Medical History: Reports: Hx Hypercholesterolemia, Hx Hypertension Neurological Medical History: Reports: Hx Migraine Renal/ Medical History: Denies: Hx Peritoneal Dialysis GI Medical History: Reports: Hx Hiatal Hernia - Immunizations Hx Diphtheria, Pertussis, Tetanus Vaccination: Yes Hx Pneumococcal Vaccination: 09/24/11 Review of Systems - Review of Systems Notes: REVIEW OF SYSTEMS: CONSTITUTIONAL : Denies fever, chills, or sweats. Denies recent illness. Denies weight loss, recent hospitalizations. EENT: Denies visual changes, eye pain. Denies sore throat, oral lesions, difficulty swallowing. CARDIOVASCULAR: Denies chest pain. Denies palpitations. Denies lower extremity edema. RESPIRATORY: Denies cough. Denies shortness of breath, wheezing. GASTROINTESTINAL: Denies abdominal pain or distention. Denies nausea, vomiting, or diarrhea. Denies blood in vomitus, stools, or per rectum. Denies black, tarry stools. Denies constipation. GENITOURINARY: Denies difficulty urinating, painful urination, frequency, blood in urine, testicular pain or penile discharge. MUSCULOSKELETAL: Denies back or neck pain or stiffness. Denies joint pain or swelling. SKIN: Denies rash, lesions or sores. HEMATOLOGIC : Denies easy bruising or bleeding. LYMPHATIC: Denies swollen glands. NEUROLOGICAL: Denies confusion or altered mental status. Denies loss of consciousness. Denies lightheadedness. Denies weakness or paralysis. Denies problems difficulty with ambulation, slurred speech. Denies sensory loss, numbness, or tingling. Denies seizures. PSYCHIATRIC: Denies anxiety or stress. Denies depression, suicidal ideation, or Physical Exam - Vital signs Vitals: Temp Pulse Resp BP Pulse Ox 97.8 F 73 18 124/63 97 03/20/18 16:49 03/20/18 16:49 03/20/18 16:49 03/20/18 16:49 03/20/18 16:49 Interpretation: Normal - Notes Notes: PHYSICAL EXAMINATION: GENERAL: Well-appearing, well-nourished and in no acute distress. HEAD: Atraumatic, normocephalic. No temporal artery tenderness. EYES: Pupils equal round and reactive to light, extraocular movements intact, sclera anicteric, conjunctiva are normal. ENT: Nares patent, oropharynx clear without exudates. Moist mucous membranes. NECK: Normal range of motion, supple without lymphadenopathy. No meningismus, nuchal rigidity. LUNGS: Breath sounds clear to auscultation bilaterally and equal. No wheezes rales or rhonchi. HEART: Regular rate and rhythm without murmurs ABDOMEN: Soft, nontender, nondistended abdomen. No guarding, no rebound. No masses appreciated. Musculoskeletal: Normal range of motion, no pitting or edema. No cyanosis. NEUROLOGICAL: Cranial nerves grossly intact. Normal speech, normal gait. Normal sensory, motor exams. NIH 0 PSYCH: Normal mood, normal affect. SKIN: Warm, Dry, normal turgor, no rashes or lesions noted. - HEENT Visual acuity- Right eye: 20/40 Visual acuity- Left eye: 20/50 Visual acuity- Both eyes: 20/40 Corrective lenses worn: No Course - Re-evaluation Re-evalutation: Laboratory 03/20/18 03/20/18 03/20/18 18:58 18:58 18:58 WBC 10.5 RBC 5.14 Hgb 15.5 Hct 46.3 MCV 90 MCH 30.1 MCHC 33.4 RDW 14.3 H Plt Count 199 Seg Neutrophils % 59.5 Lymphocytes % 33.4 Monocytes % 6.1 Eosinophils % 0.6 Basophils % 0.4 Absolute Neutrophils 6.2 Absolute Lymphocytes 3.5 Absolute Monocytes 0.6 Absolute Eosinophils 0.1 Absolute Basophils 0.0 Sodium 146.0 H Potassium 4.4 Chloride 107 Carbon Dioxide 28 Anion Gap 11 BUN 10 Creatinine 0.80 Est GFR ( Amer) > 60 Est GFR (Non-Af Amer) > 60 Glucose 93 Calcium 10.4 H Total Bilirubin 0.5 Direct Bilirubin 0.3 Neonat Total Bilirubin Not Reportable Neonat Direct Bilirubin Not Reportable Neonat Indirect Bili Not Reportable AST 18 ALT 19 L Alkaline Phosphatase 62 Creatine Kinase 122 CK-MB (CK-2) 0.61 Troponin I < 0.012 Total Protein 8.3 H Albumin 5.[address] 03/20/18 18:28 IMPRESSION: NORMAL BRAIN CT WITHOUT CONTRAST. EVIDENCE OF ACUTE STROKE: NO. Chest X-Ray 03/20/18 18:30 IMPRESSION: NO ACUTE RADIOGRAPHIC FINDING IN THE CHEST. Temp Pulse Resp BP Pulse Ox 97.8 F 73 18 124/63 97 03/20/18 16:49 03/20/18 16:49 03/20/18 16:49 03/20/18 16:49 03/20/18 16:49 67-year-old male with hypertension, hyperlipidemia, chronic migraine headaches who undergoes Botox injections frequently presents with complaint of headache that started 10 days prior to arrival with worsening of pain today. Pain is located in the parietal area bilaterally and throbbing pain. Patient states that this is typical of his migraines. He is not on any maintenance medications for his migraines. He is due for another round of Botox injections in approximately 3 weeks. He has not contacted his neurologist regarding this new headache. Patient has associated nausea, photophobia. He denies any slurred speech, confusion, difficulty with ambulation, focal weakness. Patient is not on any blood thinning medication. He reports a recent MRI within the last 3 months which he reports to be normal. Patient has a normal physical and ne urologic exam. No focal deficits. Vital signs within normal limits. Ambulates without difficulty. Patient reports that this headache is similar to all of his headaches which never ever fully resolved. CT head was obtained and showed no evidence of stroke. Chest x-ray within normal limits. CBC, CMP, cardiac enzymes within normal limits. 03/20/18 23:06 Patient reports improvement of pain. He does state that he lives with a constant headache that does not ever fully go away. He does not not have a upcoming appointment with neurology but him and his are urged to follow-up as soon as possible. 03/21/18 00:00 Presentation of a headache that appears to be most consistent with tension versus migrainous type headache. Headache was not maximal in onset, patient has no focal neurologic deficits, no nuchal rigidity, vital signs within normal limits, no papilledema, and patient is overall well in appearance. Based on clinical history and examination I do not suspect an acute subarachnoid hemorrhage, dural venous sinus thrombosis, acute meningitis, or intercranial mass. Given my low clinical suspicion for any acute life-threatening etiology. Patient presents with a chronic problem. He does have neurology follow-up. Patient was evaluated and treated as appropriate for the patient's presenting symptoms and complaint, with consideration of any critical or life threatening conditions that may be associated with their obtained history and exam as noted above. All results were discussed with patient. Patient provided the opportunity to ask questions, and express concerns. Patient was educated on treatments based on their presumed diagnosis as noted above. At this time we will discharge the patient with return precautions and follow-up recommendations. Verbal discharge instructions given a the bedside. Medication warnings reviewed. Patient is in agreement with this plan and has verbalized understanding of return precautions. After careful consideration I feel that that patient can be safely discharged from the emergency department, they were advised to followup with a primary care physician in 2-3 days. Dictation on this chart was performed using voice recognition software and may result in unintended grammatical, spelling, syntax or errors. 03/21/18 00:08 - Vital Signs Vital signs: Temp Pulse Resp BP Pulse Ox 97.8 F 73 18 124/63 97 03/20/18 16:49 03/20/18 16:49 03/20/18 16:49 03/20/18 16:49 03/20/18 16:49 - Laboratory Result Diagrams: 03/20/18 18:58 03/20/18 18:58 Laboratory results interpreted by me: 03/20/18 03/20/18 18:58 18:58 RDW 14.3 H Sodium 146.0 H Calcium 10.4 H ALT 19 L Total Protein 8.3 H Albumin 5.3 H - Diagnostic Test Radiology reviewed: Image reviewed, Reports reviewed Discharge - Discharge Clinical Impression: History of migraine headaches Headache Qualifiers: Headache type: unspecified Headache chronicity pattern: unspecified pattern Intractability: not intractable Qualified Code(s): R51 - Headache Condition: Good Disposition: HOME, SELF-CARE Instructions: Headache ([facility]) Additional Instructions: You have been seen in the Emergency Department (ED) for a headache. Please use Tylenol (acetaminophen) or Motrin (ibuprofen) as needed for symptoms, but only as written on the box. As we have discussed, please follow up with your primary care doctor as soon as possible regarding today's ED visit and your headache symptoms. Call your doctor or return to the ED if you have a worsening headache, sudden a nd severe headache, confusion, slurred speech, facial droop, weakness or numbness in any arm or leg, extreme fatigue, or other symptoms that concern you. Prescriptions: Metoclopramide HCl [Reglan 10 mg Tablet] 1 tab PO Q8H PRN #10 tablet PRN Reason: For Headache Forms: Smoking Cessation Education Referrals: NORMA MOSER MD [Primary Care Provider] - Follow up tomorrow ED NIH Stroke Scale - NIH Stroke Scale *: 1. NIH scale should be completed with appropriate accompanying assessment tools. *: 2. The NIH should reflect what the patient is capable of doing and should not be coached by the clinician. 1a. Level of Consciousness: 0=Alert;keenly responsive -: 1=Drowsy -: 2=Obtunded -: 3=Coma/unresponsive or reflex to noxious stimuli. 1a. Responses: 0 1b. Orientation Questions: a. What month is it? -: b. How old are you? -: 0=Answers both questions correctly. -: 1=Answers one question correctly or patient is intubated or has orotracheal trauma. -: 2=Answers neither question correctly. 1b. Responses: 0 1c. Response to commands: a. Open and close eyes? -: b. Senior Patient Account Representative and release hand? -: Credit is given despite weakness. Demonstration of task is permitted. Substitute command if hands cannot be used. -: 0=Performs both tasks correctly -: 1=Performs one task correctly -: 2=Performs neither task correctly 1c. Responses: 0 2. Gaze: Establish eye contact and instruct patient to "Follow my finger" -: 0=Normal -: 1=Partial gaze palsy. Gaze is abnormal in one or both eyes, but where forced deviation or total gaze paresis is not present. -: 2=Forced deviation or total gaze paresis. 2. Responses: 0 3. Visual Bates: Sees fingers in all four quadrants. -: 0=No visual loss. -: 1=Partial hemianopsia. -: 2=Complete hemianopsia. -: 3=Bilateral hemianopsia (including Cortical blindness) 3. Responses: 0 4. Facial Movement: Instruct patient to: -: a. Show me your teeth -: b. Raise your eyebrows -: c. Close your eyes -: d. Smile -: 0=Normal symmetrical movement -: 1=Minor paralysis (flattened nasolabial fold, asymmetry on smiling). -: 2=Partial paralysis (total or near total paralysis of lower face). -: 3=Complete paralysis of upper and lower face 4. Responses: 0 5. Motor functions (left arm): Alternate sides and extend each arm with palms down (90 degrees if sitting or 45 degrees for supine). -: 0=No drift;limb holds for full 10 seconds. -: 1=Drift; limb holds but drifts down before full 10 seconds, but does not hit bed. -: 2=Some effort against gravity; limb cannot get to or maintain position. -: 3=No effort against gravity; limb falls. -: 4=No movement. -: UN=Amputation, joint fusion, explain in comments. 5. Responses (left arm): 0 5. Motor Functions (right arm): Alternate sides and extend each arm with palms down (90 degrees if sitting or 45 degrees for supine). -: 0=No drift;limb holds for full 10 seconds. -: 1=Drift; limb holds but drifts down before full 10 seconds, but does not hit bed. -: 2=Some effort against gravity; limb cannot get to or maintain position. -: 3=No effort against gravity; limb falls. -: 4=No movement. -: UN=Amputation, joint fusion, explain in comments. 5. Responses (right arm): 0 6. Motor Functions (left leg): With patient lying supine, alternate sides and extend each leg (30 degrees always while supine). -: 0=No drift, leg holds position for full 5 seconds -: 1=Drift; leg falls before full 5 seconds but does not hit bed. -: 2=Some effort against gravity, leg falls to bed but some effort against gravity. -: 3=No effort against gravity, leg falls to bed immediately. -: 4=No movement. -: UN=Amputation, joint fusion; explain in comments. 6. Responses (left leg): 0 6. Motor Functions (right leg): With patient lying supine, alternate sides and extend each leg (30 degrees always while supine). -: 0=No drift, leg holds position for full 5 seconds -: 1=Drift; leg falls before full 5 seconds but does not hit bed. -: 2=Some effort against gravity, leg falls to bed but some effort against gr avity. -: 3=No effort against gravity, leg falls to bed immediately. -: 4=No movement. -: UN=Amputation, joint fusion; explain in comments. 6. Responses (right leg): 0 7. Limb Ataxia: With eyes open instruct patient to: -: a. "Touch your finger to your nose". -: b. "Touch your heel to your whittaker" -: 0=Absent -: 1=Present in one limb. -: 2=Present in two limbs. -: UN=Amputation or joint fusion; explain in comments. 7. Responses: 0 8. Sensory: Test sensation using pinprick or noxious stimuli. Test as many body parts as possible. -: 0=Normal;no sensory loss -: 1=Mile to moderate sensory loss (patient feels pin prick but is less sharp on affected side). -: 2=Severe or total sensory loss. 8. Responses: 0 9. Best Language: Instruct patient to: -: a. "Describe what you see in this picture." -: b. "Name the items in this picture." -: c. "Read these sentences." -: 0=No aphasia, normal -: 1=Mild to moderate aphasia. -: 2=Severe aphasia -: 3=Mute, global aphasia, no usable speech or auditory comprehension. 9. Responses: 0 10. Articulation, Dysarthia: Instruct patient to: -: "Read these words" or "Repeat these words" -: 0=Normal -: 1=Mild to moderate; patient may slur some words but can be understood without difficulty. -: 2=Severe; patients speech so slurred as to be unintelligible in the absence of dysphasia. -: UN=Intubated or other physical barrier, explain in comments. 10. Responses: 0 11. Extinction or inattention: 0=No abnormality -: 1= Visual, tactile, auditory, spatial, or personal inattention or extinction to bilateral simulation in one or the sensory modalities. -: 2=Profound jackie-inattention or jackie-inattention to more than one modality; does not recognize own hand. 11. Responses: 0 Total Score: 0
[2018-03-20] MEDS ORDERED: SUMATRIPTAN SUCCINATE 25 MG TABLET PO ONE (23:05)
[2018-03-20] MEDS ORDERED: SUMATRIPTAN SUCCINATE 25 MG TABLET ONE (23:55)
[2018-03-21 00:31] VITALS: BP 110/60
== END 2018-03-21 00:38 | disposition home or self-care (01) ==
LOC: ER 16:24
DX: R51 Headache (principal); I10 Essential (primary) hypertension; E78.5 Hyperlipidemia, unspecified; F17.200 Nicotine dependence, unspecified, uncomplicated
CPT/HCPCS: 93005; 99285; 96372; 36415; 82553; 82550; 85025; 80053; 84484; 71046; 70450; 93010; A9270 ×5; J1200; J0780; J3490

== ENCOUNTER 2018-05-27 09:21 | Day surgery (SDC) | payer OTHER, MEDICARE ==
[~2018-05-27 09:21] MED LIST: PROPOFOL INJ 200 MG/20 ML VIAL IV ONE
[2018-05-27] MEDS ORDERED: PROPOFOL INJ 200 MG/20 ML VIAL IV ONE (11:08)
[2018-05-27 12:00] VITALS: BP 125/67
--- NOTE | 2018-05-27 14:46 | Operative Report ---
Operative Report DATE OF SURGERY: 05/27/18 Operative Report: The risks, benefits and alternatives of the procedure including the risk of bleeding, perforation requiring surgery have been explained to the patient in detail and informed consent has been obtained. Patient is placed in a left, lateral decubital position. Timeout was called. Propofol medication is administered. Rectal examination is done which did not reveal any masses, tears or fissures. An Olympus videoscope was introduced into the patient's rectum. The scope was then carefully advanced all the way to the cecum. The cecum was identified by the usual anatomical landmarks including the ileocecal valve as well as the appendiceal office. Photodocumentation was obtained. Scope was then sequentially pulled back via the various segments of the colon including the ascending colon, hepatic flexure, transverse colon, splenic flexure, descending colon and finally into the rectosigmoid portions of the colon. Retroflexion maneuver was performed. PREOPERATIVE DIAGNOSIS: Personal history of colon polyp POSTOPERATIVE DIAGNOSIS: Hepatic flexure polyp that was removed via snare polypectomy and retrieved. Splenic flexure polypremoved via snare polypectomy however tissue was ablated in situ and no tissue was retrieved. Sessile sigmoid colon polyp that was able to be removed via cold biopsy forceps OPERATION: Colonoscopy with snare polypectomy. Colonoscopy with biopsy SURGEON: DOROTA SNELL ANESTHESIA: LMAC TISSUE REMOVED OR ALTERED: As noted above. COMPLICATIONS: None. ESTIMATED BLOOD LOSS: None. INTRAOPERATIVE FINDINGS: As noted above. PROCEDURE: Patient tolerated the procedure well. No immediate postprocedure complications are noted. Patient discharged in good condition. Discharge date 05/27/2018. Discharge diet: Regular. Discharge activity: Regular. 2-3-week follow-up to discuss findings. Patient is instructed to call the office or proceed to the emergency room should there be any further proximal questions. I will wait on pathology. 3-year surveillance colonoscopy.
== END 2018-05-27 12:04 | disposition home or self-care (01) ==
LOC: END 09:21
PROVIDERS: ATTEND Internal Medicine Gastroenterology
DX: Z12.11 Encounter for screening for malignant neoplasm of colon (principal); D12.6 Benign neoplasm of colon, unspecified; D12.5 Benign neoplasm of sigmoid colon; K64.8 Other hemorrhoids; Z86.010 Personal history of colon polyps; I10 Essential (primary) hypertension; E78.2 Mixed hyperlipidemia; Z87.891 Personal history of nicotine dependence; Z79.899 Other long term (current) drug therapy; Z79.84 Long term (current) use of oral hypoglycemic drugs
CPT/HCPCS: 45380; 45385; 82962; 88305 ×2; J2704; 811

== ENCOUNTER 2018-07-04 10:31 | Emergency (ER) | payer OTHER, MEDICARE ==
[2018-07-04 10:41] VITALS: BP 183/80
[2018-07-04] MEDS ORDERED: KETOROLAC TROMETHAMINE INJ/PF 30 MG/1 ML SDV IV ONE (10:52)
[2018-07-04] MEDS ORDERED: DIPHENHYDRAMINE HCL 50 MG/ML VIAL IV ONE (10:52)
[2018-07-04] MEDS ORDERED: PROCHLORPERAZINE EDISYLATE INJ 10 MG/2 ML VIAL IV ONE (10:52)
--- NOTE | 2018-07-04 10:56 | ER Document Report ---
HPI - HPI Time Seen by Provider: 07/04/18 10:52 Pain Level: 4 Notes: Patient is a 67-year-old male with a history of hypertension and chronic headaches who presents to the emergency department complaining of a headache that he has had for about 1-2 weeks that is been daily and minimally improved with his at home medications. Patient states that he did receive Botox injections a month ago for these headaches. Patient states his headaches start in the neck/posterior head area and is described as a "pulling" pain. Patient states that this is not any different from previous headaches otherwise. He does see a clinic in [place] for these headaches. He is otherwise eating and drinking without difficulty. He is urinating normally and having normal bowel movements. This is not the worst headache of his life and it did not start as a thunderclap. He will occasionally have light sensitivity associated and dizziness which is normal. Denies any fever, head injury, neck pain, changes in vision/speech/mentation/hearing, URI, sore throat, chest pain, palpitations, syncope, cough, shortness of breath, wheeze, dyspnea, abdominal pain, nausea/vomiting/diarrhea, urinary retention, dysuria, hematuria, loss of control of bowel or bladder, numbness/tingling, muscle paralysis/weakness, or rash. - ROS Systems Reviewed and Negative: Yes All other systems reviewed and negative - REPRODUCTIVE Reproductive: DENIES: : - DERM Skin Color: Normal Past Medical History - Social History Smoking Status: Current Every Day Smoker Family History: Reviewed & Not Pertinent Patient has suicidal ideation: No Patient has homicidal ideation: No - Past Medical History Cardiac Medical History: Reports: Hx Hypercholesterolemia, Hx Hypertension Denies: Hx Coronary Artery Disease, Hx Heart Attack Pulmonary Medical History: Reports: Hx Pneumonia - 2018 Denies: Hx Asthma, Hx Bronchitis, Hx COPD Neurological Medical History: Reports: Hx Migraine. Denies: Hx Cerebrovascular Accident, Hx Seizures Renal/ Medical History: Denies: Hx Peritoneal Dialysis GI Medical History: Reports: Hx Hiatal Hernia Musculoskeletal Medical History: Reports Hx Arthritis - Immunizations Hx Diphtheria, Pertussis, Tetanus Vaccination: - UNKNOWN Hx Pneumococcal Vaccination: 09/24/11 Vertical Provider Document - CONSTITUTIONAL Agree With Documented VS: Yes Notes: PHYSICAL EXAMINATION: GENERAL: Well-appearing, well-nourished and in no acute distress. A&Ox4. Answers questions appropriately. HEAD: Atraumatic, normocephalic. Non-tender. EYES: Pupils equal round and reactive to light, extraocular movements intact, sclera anicteric, conjunctiva are normal. No nystagmus. vis mas intact. ENT: EAC clear b/l. TM's intact b/l without erythema, fluid, or perforation. Nares patent and without discharge. oropharynx clear without exudates. No tonsilar hypertrophy or erythema. Moist mucous membranes. No sinus tenderness. NECK: Normal range of motion, supple without lymphadenopathy. No rigidity/meningismus. No midline tenderness. LUNGS: Breath sounds clear to auscultation bilaterally and equal. No wheezes rales or rhonchi. HEART: Regular rate and rhythm without murmurs, rubs, gallops. ABDOMEN: Soft, nontender, nondistended abdomen. No guarding, no rebound. Normal bowel sounds present. No CVA tenderness bilaterally. Musculoskeletal: Ext's b/l: FROM to passive/active. Strength 5+/5. No deficits noted. No bony tenderness of extremities. Extremities: No cyanosis, clubbing, or edema b/l. Peripheral pulses 2+. Capillary refill less than 2 seconds. NEUROLOGICAL: NIH 0. GCS 15. Cranial nerves grossly intact. Normal speech, normal gait. Normal sensory, motor exams. Reflexes 2+ b/l. CHRIS's negative. Pronator drift negative. Heel/whittaker, finger/nose wnl. Rhomberg neg. PSYCH: Normal mood, normal affect. SKIN: Warm, Dry, normal turgor, no rashes or lesions noted. - INFECTION CONTROL TRAVEL OUTSIDE OF THE [place] IN LAST 30 DAYS: No Course - Re-evaluation Re-evalutation: 07/04/18 Patient is an afebrile, well-hydrated, 67-year-old male who presents to the ED with a headache, suspect tension vs migraine. Vitals are acceptable without any significant tachycardia, tachypnea, or hypoxia. PE is otherwise unremarkable for any focal neurological deficits. NIH 0, GCS 15, cranial nerves grossly intact. Patient has had headaches like this in the past recently. No labs or imaging warranted at this time based on H&P. Patient was given Toradol, Compazine, and benadryl which has resolved the headache. Patient states that he is feeling much better and would like to go home. He is nontoxic-appearing and is tolerating p.o. without any difficulties. Pt has no drowsiness associated the medicines and is not somnolent. Low suspicion for any acute glaucoma, temporal arteritis, meningitis, intracranial hemorrhage, ischemic stroke, or fracture at this time. Patient is aware that this condition can change from initial presentation and that he needs to monitor symptoms closely for any acute changes. Recheck with your PCM/neurologist in 3-5 days. Return to the ED with any worsening/concerning symptoms otherwise as reviewed in discharge. Patient is in agreement. - Vital Signs Vital signs: Temp Pulse Resp BP Pulse Ox 98.0 F 78 20 183/80 H 95 07/04/18 10:40 07/04/18 10:40 07/04/18 10:40 07/04/18 10:40 07/04/18 10:40 Discharge - Discharge Clinical Impression: Headache Qualifiers: Headache type: tension-type Headache chronicity pattern: acute headache Intractability: not intractable Qualified Code(s): G44.209 - Tension-type headache, unspecified, not intractable Condition: Stable Disposition: HOME, SELF-CARE Instructions: Headache ([facility]) Additional Instructions: Rest, Ice/cool compress Tylenol/ibuprofen as needed Light stretches daily Strength exercises as able Moist heat and massage may help F/u with your PCP in 3-5 days for a recheck Consider consult(s) with Neurology for ongoing/worsening symptoms Return to the ED with any worsening symptoms and/or development of fever, headache, changes in behavior/mentation/vision/speech, chest pain, palpitations, syncope, shortness of breath, trouble breathing, abdominal pain, n/v/d, blood in stool/urine, loss of control of bowel/bladder, urinary retention, muscle weakness/paralysis, saddle anesthesia, numbness/tingling, or other worsening symptoms that are concerning to you. Forms: Elevated Blood Pressure, Smoking Cessation Education Referrals: NORMA MOSER MD [Primary Care Provider] - Follow up as needed PETROS WILLARD MD [NO LOCAL MD] - Follow up as needed
== END 2018-07-04 12:03 | disposition home or self-care (01) ==
LOC: ER 10:31
DX: G44.209 Tension-type headache, unspecified, not intractable (principal); I10 Essential (primary) hypertension; F17.200 Nicotine dependence, unspecified, uncomplicated
CPT/HCPCS: 99283; 96374; 96375; J1200; J1885; J0780

== ENCOUNTER → 2018-07-30 | Outpatient (CLI) | payer MEDICARE, OTHER ==
--- NOTE | 2018-07-30 15:46 | RADIOLOGY REPORT (SQ) ---
EXAM DESCRIPTION: CT LUNG CANCER SCREENING COMPLETED DATE/TIME: 07/30/2018 1:59 pm REASON FOR STUDY: PERSONAL HISTORY OF NICOTINE DEPENDENCE Z87.891 PERSONAL HISTORY OF NICOTINE DEPE NDENCE Has the patient had a Chest CT scan within the past year? No Was the patient offered tobacco cessation counseling? Yes Was the patient engaged in shared decision making for this test? Yes Does the patient have signs or symptoms of Lung Cancer? No Is the patient a smoker? Yes How many pack years? 25 How many years since quitting smoking? Not have the Patients age: 67 COMPARISON: 05/24/2016, 06/01/2017 TECHNIQUE: Low Dose CT scan performed of the chest without intravenous contrast for purposes of scre ening for lung cancer. Images reviewed with lung, soft tissue and bone windows. Reconstructed coron al and sagittal MPR images reviewed. All images stored on PACS. All CT scanners at this facility use dose modulation, iterative reconstruction, and/or weight based d osing when appropriate to reduce radiation dose to as low as reasonably achievable (ALARA). [facility]: Dose Right [facility]: CareDose [facility]: Dose Right [facility]: Teradose 4D [facility]: [employer] RADIATION DOSE: CT Rad equipment meets quality standard of care and radiation dose reduction techniq ues were employed. CTDIvol: 2.1 mGy. DLP: 83 mGy-cm. mGy. . LIMITATIONS: No technical limitations. FINDINGS: LUNG NODULES: Benign calcified granulomas just above the left hemidiaphragm less than 4 m m in size. These are stable compared to 2017 REMAINING LUNGS AND PLEURA: No pleural effusions or calcifications. No pneumothorax. No scarrin g or interstitial changes. HILAR AND MEDIASTINAL STRUCTURES: No identified masses. No abnormal nodes. HEART AND VASCULAR STRUCTURES: No aortic aneurysm. No pericardial effusion. No cardiac devices. CORONARY ARTERY CALCIFICATIONS: No significant calcifications. UPPER ABDOMEN, THYROID, BONES, OTHER SOFT TISSUES: No significant findings. IMPRESSION: BENIGN FINDINGS IN THE LUNGS. NO OTHER CLINICALLY SIGNIFICANT/POTENTIALLY CLINICALLY SIGNIFICANT FINDINGS LUNGRADS: LUNGRADS: 2 BENIGN APPEARANCE OR BEHAVIOR. NODULES WITH A VERY LOW LIKELIHOOD OF BECOMING A CLINICALLY ACTIVE CANCER DUE TO SIZE OR LACK OF GROWTH. MODIFIER: NONE. RECOMMENDATION: Continue annual screening with LDCT in 12 months. COMMENT: CRITERIA: Solid nodule(s): < 6 mm; new < 4 mm. Part solid nodule(s): < 6 mm total diameter on baseline screening. Non solid nodule(s) (GGN): < 20 mm OR ? 20 and unchanged or slowly growing. Category 3 or 4 modules unchanged for ? 3 months. TECHNICAL DOCUMENTATION: JOB ID: [id number] Quality ID # [id number]: Final reports with documentation of one or more dose reduction techniques (e.g., Au tomated exposure control, adjustment of the mA and/or kV according to patient size, use of iterative reconstruction technique) 2010 [facility] Reading location - IP/workstation name: [email or web address]
== END ==
LOC: RAD 12:42
PROVIDERS: ATTEND Internal Medicine
DX: Z87.891 Personal history of nicotine dependence (principal)
CPT/HCPCS: G0297

== ENCOUNTER 2019-01-19 21:49 | Emergency (ER) | payer MEDICARE, OTHER ==
--- NOTE | 2019-01-19 23:02 | ER Document Report ---
ED General - General Chief Complaint: Dizziness Stated Complaint: DIZINESS,HEADACHE Time Seen by Provider: 01/19/19 22:40 Primary Care Provider: NORMA MOSER MD [Primary Care Provider] - Follow up tomorrow TRAVEL OUTSIDE OF THE [place]. IN LAST 30 DAYS: No - Related Data Allergies/Adverse Reactions: No Known Allergies Allergy (Verified 05/27/18 09:53) Home Medications: aimovig 70 mg subq q mnth (14). zyrtec 10 mg. tension ortiz med Past Medical History - Social History Smoking Status: Current Every Day Smoker Family History: Reviewed & Not Pertinent Patient has suicidal ideation: No Patient has homicidal ideation: No - Past Medical History Cardiac Medical History: Reports: Hx Hypercholesterolemia, Hx Hypertension Denies: Hx Coronary Artery Disease, Hx Heart Attack Pulmonary Medical History: Reports: Hx Pneumonia - 2017 Denies: Hx Asthma, Hx Bronchitis, Hx COPD Neurological Medical History: Reports: Hx Migraine. Denies: Hx Cerebrovascular Accident, Hx Seizures Renal/ Medical History: Denies: Hx Peritoneal Dialysis GI Medical History: Reports: Hx Hiatal Hernia Musculoskeletal Medical History: Reports Hx Arthritis - Immunizations Hx Diphtheria, Pertussis, Tetanus Vaccination: - UNKNOWN Hx Pneumococcal Vaccination: 09/24/11 Physical Exam - Vital signs Vitals: Temp Pulse Resp BP Pulse Ox 98.8 F 95 16 158/86 H 97 01/19/19 21:57 01/19/19 21:57 01/19/19 21:57 01/19/19 21:57 01/19/19 21:57 Course - Vital Signs Vital signs: Temp Pulse Resp BP Pulse Ox 98.8 F 76 19 139/88 H 96 01/19/19 21:57 01/19/19 22:10 01/19/19 23:01 01/19/19 23:01 01/19/19 23:01 Discharge - Discharge Clinical Impression: Headache Condition: Stable Disposition: HOME, SELF-CARE Instructions: Headache ([facility]) Referrals: NORMA MOSER MD [Primary Care Provider] - Follow up tomorrow
[2019-01-19] MEDS ORDERED: BUTALB/ACETAMINOPHEN/CAFFEINE 1 TAB EACH PO ONE (23:05)
--- NOTE | 2019-01-19 23:05 | ER Document Report ---
ED General - General Chief Complaint: Dizziness Stated Complaint: DIZINESS,HEADACHE Time Seen by Provider: 01/19/19 22:40 Primary Care Provider: NORMA MOSER MD [Primary Care Provider] - Follow up as needed TRAVEL OUTSIDE OF THE [place] IN LAST 30 DAYS: No - HPI Notes: States he was seen at the [facility], has had multiple imaging studies in the past that are unremarkable. He has had no change in his typical character and pattern, she states that her silhouette was normal. He denies any new injury. No fever, chills or sweats. No visual changes, no new neurologic complaints. Moderate intensity, nonradiating. No other modifying factors, no other associated symptoms, no other provocative or palliative factors. - Related Data Allergies/Adverse Reactions: No Known Allergies Allergy (Verified 05/27/18 09:53) Home Medications: aimovig 70 mg subq q mnth (). zyrtec 10 mg. tension ortiz med Past Medical History - Social History Smoking Status: Current Every Day Smoker Family History: Reviewed & Not Pertinent Patient has suicidal ideation: No Patient has homicidal ideation: No - Medical History Notes: Chronic headaches - Past Medical History Cardiac Medical History: Reports: Hx Hypercholesterolemia, Hx Hypertension Denies: Hx Coronary Artery Disease, Hx Heart Attack Pulmonary Medical History: Reports: Hx Pneumonia - 2017 Denies: Hx Asthma, Hx Bronchitis, Hx COPD Neurological Medical History: Reports: Hx Migraine. Denies: Hx Cerebrovascular Accident, Hx Seizures Renal/ Medical History: Denies: Hx Peritoneal Dialysis GI Medical History: Reports: Hx Hiatal Hernia Musculoskeletal Medical History: Reports Hx Arthritis - Immunizations Hx Diphtheria, Pertussis, Tetanus Vaccination: - UNKNOWN Hx Pneumococcal Vaccination: 09/24/11 Review of Systems - Review of Systems Notes: Review of systems as in the history of present illness, otherwise negative x 10 systems. Physical Exam - Vital signs Vitals: Temp Pulse Resp BP Pulse Ox 98.8 F 95 16 158/86 H 97 01/19/19 21:57 01/19/19 21:57 01/19/19 21:57 01/19/19 21:57 01/19/19 21:57 - Notes Notes: General: Well developed, well nourished. HEENT: Normocephalic, atraumatic. PEERL. No conjunctival injection. Neck: Supple, no significant adenopathy. No meningismus. Chest: Clear bilaterally, good air entry. Abdomen: Soft, non-tender, nondistended. Back: Non-tender. Normal ROM Extremities: No cyanosis, clubbing or edema. Vascular: Symmetric peripheral pulses, normal capillary refill. Skin: No significant rash. No petechiae or purpura. Motor: Normal tone and power. Symmetric. Neurologic: Alert and oriented to person place and time. Cranial nerves II-12 are intact. Sensation intact and symmetric in the upper and lower extremities. No cerebellar findings including finger-nose testing. No clonus. Gait normal. Funduscopic exam shows crisp disc margins, no evidence of papilledema. Course - Re-evaluation Re-evalutation: 01/19/19 23:03 [age]-year-old male with acute on chronic headache, baseline normal neurologic exam, no attenuating features to suggest her mandate imaging, will treat with oral Fioricet, outpatient follow-up. - Vital Signs Vital signs: Temp Pulse Resp BP Pulse Ox 98.8 F 76 16 150/76 H 97 01/19/19 21:57 01/19/19 22:10 01/19/19 22:10 01/19/19 22:10 01/19/19 22:10 Discharge - Discharge Clinical Impression: Headache Qualifiers: Headache type: unspecified Headache chronicity pattern: unspecified pattern Intractability: not intractable Qualified Code(s): R51 - Headache Condition: Stable Disposition: HOME, SELF-CARE Instructions: Headache ([facility]) Referrals: NORMA MOSER MD [Primary Care Provider] - Follow up tomorrow
[2019-01-19 23:14] VITALS: BP 139/88
== END 2019-01-19 23:20 | disposition home or self-care (01) ==
LOC: ER 21:49
DX: R42 Dizziness and giddiness (principal); R51 Headache; F17.200 Nicotine dependence, unspecified, uncomplicated; E78.00 Pure hypercholesterolemia, unspecified; I10 Essential (primary) hypertension
CPT/HCPCS: 99283

== ENCOUNTER → 2019-01-31 | Outpatient (CLI) | payer MEDICARE, OTHER ==
--- NOTE | 2019-01-31 11:18 | RADIOLOGY REPORT (SQ) ---
EXAM DESCRIPTION: U/S RETROPERITON (RENAL/AORTA) COMPLETED DATE/TIME: 01/31/2019 11:09 am REASON FOR STUDY: RLQ PAIN R10.31 RIGHT LOWER QUADRANT PAIN COMPARISON: CT abdomen dated 03/07/2018 TECHNIQUE: Dynamic and static grayscale images acquired of the kidneys and bladder and recorded on P ACS. Additional selected color Doppler and spectral images recorded. LIMITATIONS: None. FINDINGS: RIGHT KIDNEY: 10.5 cm in length. Normal echogenicity. No solid or suspicious masses. No hydronephrosis. No calcifications. LEFT KIDNEY: 11.8 cm in length. Normal echogenicity. No solid or suspicious masses. No hydrone phrosis. No calcifications. BLADDER: Nondistended. OTHER FINDINGS: No other significant finding. IMPRESSION: Normal renal ultrasound. The bladder is nondistended. TECHNICAL DOCUMENTATION: JOB ID: [id number] [employer]- All Rights Reserved Reading location - IP/workstation name: [email or web address]
== END ==
LOC: RAD 11:26
PROVIDERS: ATTEND Internal Medicine
DX: R10.31 Right lower quadrant pain (principal)
CPT/HCPCS: 76770

== ENCOUNTER 2019-04-23 22:08 | Emergency (ER) | payer OTHER, MEDICARE ==
--- NOTE | 2019-04-24 03:57 | ER Document Report ---
ED Headache - General Chief Complaint: Headache Stated Complaint: HEADACHE,DIZZINESS Time Seen by Provider: 04/24/19 03:19 Primary Care Provider: NORMA MOSER MD [Primary Care Provider] - Follow up as needed TRAVEL OUTSIDE OF THE [place] IN LAST 30 DAYS: No - HPI Patient complains to provider of: Headache, Other - dizziness Onset: Other Onset was: Gradual. denies: Abrupt, Thunderclap Severity: Severe Pain Level: 5 Context: denies: CO exposure, Head injury Associated symptoms: None Similar symptoms previously: Yes Recently seen / treated by doctor: Yes Notes: 68 year old right handed male arrives with global headache and concern over whether he is having a stroke. No focal weakness. No fever or chills. Sees Dr. Hira marie and is treated chronically for headache. He denies tick bite or rash. Tells me actually he was discharged from the for headaches and he has had them regularly since then. - Related Data Allergies/Adverse Reactions: No Known Allergies Allergy (Verified 05/27/18 09:53) Home Medications: fiorecet Past Medical History - Social History Smoking Status: Current Every Day Smoker Family History: Reviewed & Not Pertinent Patient has suicidal ideation: No Patient has homicidal ideation: No - Past Medical History Cardiac Medical History: Reports: Hx Hypercholesterolemia, Hx Hypertension Denies: Hx Coronary Artery Disease, Hx Heart Attack Pulmonary Medical History: Reports: Hx Pneumonia - 2018 Denies: Hx Asthma, Hx Bronchitis, Hx COPD Neurological Medical History: Reports: Hx Migraine. Denies: Hx Cerebrovascular Accident, Hx Seizures Renal/ Medical History: Denies: Hx Peritoneal Dialysis GI Medical History: Reports: Hx Hiatal Hernia Musculoskeletal Medical History: Reports Hx Arthritis - Immunizations Hx Diphtheria, Pertussis, Tetanus Vaccination: - UNKNOWN Hx Pneumococcal Vaccination: 09/24/11 Review of Systems - Review of Systems Constitutional: No symptoms reported EENT: No symptoms reported Cardiovascular: No symptoms reported Respiratory: No symptoms reported Gastrointestinal: No symptoms reported Genitourinary: No symptoms reported Male Genitourinary: No symptoms reported Musculoskeletal: No symptoms reported Skin: No symptoms reported Hematologic/Lymphatic: No symptoms reported Neurological/Psychological: No symptoms reported Physical Exam - Vital signs Vitals: Temp Pulse Resp BP Pulse Ox 98.4 F 82 20 171/76 H 96 04/23/19 22:37 04/23/19 22:37 04/23/19 22:37 04/23/19 22:37 04/23/19 22:37 Interpretation: Normal - General General appearance: Appears well, Alert - HEENT Head: Normocephalic, Atraumatic Eyes: Normal Pupils: PERRL - Respiratory Respiratory status: No respiratory distress Chest status: Nontender Breath sounds: Normal Chest palpation: Normal - Cardiovascular Rhythm: Regular Heart sounds: Normal auscultation Murmur: No - Abdominal Inspection: Normal Distension: No distension Bowel sounds: Normal Tenderness: Nontender Organomegaly: No organomegaly - Back Back: Normal, Nontender - Extremities General upper extremity: Normal inspection, Nontender, Normal color, Normal ROM, Normal temperature General lower extremity: Normal inspection, Nontender, Normal color, Normal ROM, Normal temperature, Normal weight bearing. No: Nida's sign - Neurological Neuro grossly intact: Yes Cognition: Normal Orientation: AAOx4 Blodgett Coma Scale Eye Opening: Spontaneous Blodgett Coma Scale Verbal: Oriented Blodgett Coma Scale Motor: Obeys Commands Manoj Coma Scale Total: 15 Speech: Normal Motor strength normal: LUE, RUE, LLE, RLE Sensory: Normal - Psychological Associated symptoms: Normal affect, Normal mood - Skin Skin Temperature: Warm Skin Moisture: Dry Skin Color: Normal Course - Vital Signs Vital signs: Temp Pulse Resp BP Pulse Ox 98.1 F 70 16 124/71 96 04/24/19 01:42 04/24/19 01:42 04/24/19 01:42 04/24/19 01:42 04/24/19 01:42 - Diagnostic Test Radiology reviewed: Reports reviewed Discharge - Discharge Clinical Impression: Dizziness Headache Qualifiers: Headache type: unspecified Headache chronicity pattern: acute headache In tractability: not intractable Qualified Code(s): R51 - Headache Condition: Good Disposition: HOME, SELF-CARE Instructions: Headache ([facility]), Pain Medication Injection ([facility]), Toradol Injection ([facility]) Additional Instructions: See your doctor in follow up. Rest. Please return here for any problems or any concerns. Referrals: NORMA MOSER MD [Primary Care Provider] - Follow up as needed
[2019-04-24] MEDS ORDERED: KETOROLAC TROMETHAMINE 60 MG/2 ML SDV IM ONE (03:58)
[2019-04-24] MEDS ORDERED: ONDANSETRON HCL INJ/PF 4 MG/2 ML SDV IM ONE (03:58)
--- NOTE | 2019-04-24 04:24 | RADIOLOGY REPORT (SQ) ---
EXAM DESCRIPTION: CT HEAD WITHOUT IV CONTRAST COMPLETED DATE/TME: 04/24/2019 03:45 CLINICAL HISTORY: 68 years, Male, diizness/ headache COMPARISON: March 20, 2018 TECHNIQUE: Images stored on PACS. All CT scanners at this facility use dose modulation, iterative reconstruction, and/or weight based dosing when appropriate to reduce radiation dose to as low as reasonably achievable (ALARA). [facility]: Dose Right [facility]: CareDose [facility]: Dose Right [facility]: Teradose 4D [facility]: [employer] LIMITATIONS: None. FINDINGS: Motion artifact Purcell-white differentiation is grossly normal. The ventricles and extra cerebral spaces are within normal limits, for age. No evidence of mass lesion, positive mass effect, or intracranial hemorrhage. No adverse change when compared to prior. Orbits and eyeballs unremarkable. Visualized paranasal sinuses and mastoid air cells are clear. IMPRESSION: Imaging is degraded by patient motion, with resultant artifact. The best possible images were obtained. No acute intracranial process. No adverse change when compared to prior. The cause of the patient's headache and dizziness is not identified on this examination. TECHNICAL DOCUMENTATION: Quality ID # [id number]: Final reports with documentation of one or more dose reduction techniques (e.g., Automated exposure control, adjustment of the mA and/or kV according to patient size, use of iterative reconstruction technique) copyright 2010 [employer]- All Rights Reserved
[2019-04-24 04:57] VITALS: BP 133/69
== END 2019-04-24 05:09 | disposition home or self-care (01) ==
LOC: ER 22:08
DX: R51 Headache (principal); Z79.891 Long term (current) use of opiate analgesic; R42 Dizziness and giddiness; I10 Essential (primary) hypertension; F17.200 Nicotine dependence, unspecified, uncomplicated; Z86.69 Personal history of other diseases of the nervous system and sense organs
CPT/HCPCS: 99284; 96372; 70450; J1885; J2405

== ENCOUNTER → 2019-08-11 | Outpatient (CLI) | payer OTHER, MEDICARE ==
--- NOTE | 2019-08-11 16:08 | RADIOLOGY REPORT (SQ) ---
EXAM DESCRIPTION: HIP RIGHT AP/LATERAL IMAGES COMPLETED DATE/TIME: 08/11/2019 3:59 pm REASON FOR STUDY: M25.551 M25.551 PAIN IN RIGHT HIP COMPARISON: None. NUMBER OF VIEWS: Two views. TECHNIQUE: AP and frog-leg view of the right hip. LIMITATIONS: None. FINDINGS: MINERALIZATION: Normal. RIGHT HIP: No fracture or dislocation. No worrisome bone lesions. No contour deformity. No joint sp to narrowing. OPPOSITE HIP: No fracture or dislocation. No worrisome bone lesions. SOFT TISSUES: No findings. OTHER: No other significant finding. IMPRESSION: NEGATIVE STUDY OF THE RIGHT HIP. NO EXPLANATION FOR PAIN. TECHNICAL DOCUMENTATION: JOB ID: [id number] 2010 [employer]- All Rights Reserved Reading location - IP/workstation name: [email or web address]
== END ==
LOC: OD 15:44
PROVIDERS: ATTEND Internal Medicine
DX: M25.551 Pain in right hip (principal)

== ENCOUNTER → 2020-01-05 | Outpatient (CLI) | payer MEDICARE ==
--- NOTE | 2020-01-05 09:48 | RADIOLOGY REPORT (SQ) ---
EXAM DESCRIPTION: CT HEAD WITHOUT IMAGES COMPLETED DATE/TIME: 01/05/2020 7:36 am REASON FOR STUDY: HEADACHE R51.9 HEADACHE, UNSPECIFIED COMPARISON: None. TECHNIQUE: Axial images acquired through the brain without intravenous contrast. Images reviewed wi th bone, brain and subdural windows. Additional sagittal and coronal reconstructions were generated. Images stored on PACS. All CT scanners at this facility use dose modulation, iterative reconstruction, and/or weight based d osing when appropriate to reduce radiation dose to as low as reasonably achievable (ALARA). [facility]: Dose Right [facility]: CareDose [facility]: Dose Right [facility]: Teradose 4D [facility]: [employer] RADIATION DOSE: CT Rad equipment meets quality standard of care and radiation dose reduction techniq ues were employed. CTDIvol: 48.5 mGy. DLP: 855 mGy-cm. mGy. LIMITATIONS: None. FINDINGS: VENTRICLES: Normal size and contour. CEREBRUM: No masses. No hemorrhage. No midline shift. No evidence for acute infarction. Normal gra y/white matter differentiation. No areas of low density in the white matter. CEREBELLUM: No masses. No hemorrhage. No alteration of density. No evidence for acute infarction. EXTRAAXIAL SPACES: No fluid collections. No masses. ORBITS AND GLOBE: No intra- or extraconal masses. Normal contour of globe without masses. CALVARIUM: No fracture. PARANASAL SINUSES: No fluid or mucosal thickening. SOFT TISSUES: No mass or hematoma. OTHER: No other significant finding. IMPRESSION: NORMAL BRAIN CT WITHOUT CONTRAST. EVIDENCE OF ACUTE STROKE: NO. COMMENT: Quality ID # [id number]: Final reports with documentation of one or more dose reduction techniques (e.g., Automated exposure control, adjustment of the mA and/or kV according to patient size, use of iterative reconstruction technique) TECHNICAL DOCUMENTATION: JOB ID: [id number] 2010 [employer]- All Rights Reserved Reading location - IP/workstation name: [email or web address]
== END ==
LOC: RAD 07:14
PROVIDERS: ATTEND Internal Medicine
DX: R51.9 Headache, unspecified (principal)
CPT/HCPCS: 70450